=== PATIENT | male | born 1970 | race Caucasian/White ===

== ENCOUNTER 2016-06-26 09:33 | Inpatient (IN) ==
--- NOTE | 2016-06-25 20:25 | Discharge Summary ---
<Jenelle Swain - Last Filed: 06/25/16 20:22> Date of Encounter: 06/27/16 - Discharge Diagnosis (1) Glenohumeral arthritis Status: Acute Qualifiers: Laterality: left Qualified Code(s): M19.012 - Primary osteoarthritis, left shoulder (2) HTN (hypertension) Priority: Secondary Status: Chronic Qualifiers: Hypertension type: essential hypertension Qualified Code(s): I10 - Essential (primary) hypertension (3) Asthma Priority: Secondary Status: Chronic Qualifiers: Asthma severity: unspecified severity Asthma complication type: uncomplicated Qualified Code(s): J45.909 - Unspecified asthma, uncomplicated (4) Obesity Priority: Secondary Status: Chronic Qualifiers: Obesity type: unspecified obesity type Obesity severity: unspecified obesity severity Qualified Code(s): E66.9 - Obesity, unspecified - Discharge Medications Home Medications: OxyCODONE Immed Rel [Roxicodone 5 MG] 5 mg PO Q6HR PRN #40 tablet 06/25/16 [Rx] Albuterol Neb [Proventil Neb] 2.5 mg IH TID PRN 06/26/16 [History] Albuterol Sulfate [Albuterol Inhaler] 2 puff IH Q4HR PRN 06/26/16 [History] Amlodipine [Norvasc] 5 mg PO DAILY 06/26/16 [History] Budesonide/Formoterol 160/4.5 [Symbicort 160/4.5] 2 puff IH BIDR 06/26/16 [ History] CloNIDine HCl 0.1 mg PO HS PRN 06/26/16 [History] ClonazePAM [Klonopin] 0.5 - 1 mg PO HS 06/26/16 [History] Divalproex (24 HR) [Depakote ER (24 HR)] 500 mg PO BID 06/26/16 [History] Ferrous Sulfate [Iron] 325 mg PO DAILY 06/26/16 [History] Fexofenadine HCl [Allergy Relief] 180 mg PO DAILY 06/26/16 [History] Fluticasone Propionate Nasal [Flonase] 1 spr NS DAILY PRN 06/26/16 [History] HYDROcodone/Acet 5/325 mg [[place] 5-325 mg] 1 tab PO Q12H PRN 06/26/16 [History] Lisinopril/Hydrochlorothiazide [Zestoretic 20-25 mg Tablet] 1 - 2 tab PO HS [History] Metoprolol XL (24 HR) Succ [Toprol XL] 25 mg PO HS 06/26/16 [History] Omeprazole [PriLOSEC] 40 mg PO DAILY 06/26/16 [History] Tramadol HCl [Ultram] 100 mg PO QID PRN 06/26/16 [History] Venlafaxine [Effexor] 37.5 mg PO BID 06/26/16 [History] Allergies/Adverse Reactions: Allergies Penicillins [PCN] Allergy (Verified 06/26/16 11:28) Hives Primary care physician: Jeanna De Guzman CNP - Patient Status Disposition: Home, Self-Care Condition: Good - Discharge Instructions Follow Up With: Shabbir Hale MD [Partnered Physician] - 07/25/16 10:35 am Jenelle Swain, EMMANUEL [Physician [employer] Se[employer] Tester] - 07/06/16 10:30 am Jeanna De Guzman CNP [Primary Care Provider] - 08/30/16 9:30 am Additional Instructions: Discharge Instructions: Total Shoulder Please call [facility] ([phone]), your Primary Care Physician, or report to the Emergency Room if you have any of the following symptoms: Nausea, vomiting, fever greater that 101.5, swelling, chest pain, shortness of breath, increased pain/redness/drainage/odor for your incision site, numbness/ tingling, or any other concerning symptoms. ACTIVITY: Always keep your arm in the sling. Do not raise your arm away from your body. Do not use your arm to help with getting in or out of bed. No weight bearing permitted. Only perform those exercises given to you by your therapist. MEDICATIONS: Upon discharge resume your home medications. Take all the medications as prescribed. Take a stool softener if taking narcotic pain medications. Stool softeners are only effective if you drink enough fluids. Drink 6-8 glass of water or fluids a day, unless this is not allowed for another health problem. Despite using stool softeners, if you haven't had a bowel movement in 3 days, please switch to a gentle laxative. Gentle laxatives are sold over the counter. You should have a bowel movement within 24 hours, if not call the office. You will be discharged from the hospital with a prescription for pain medication. You are encouraged to decrease the use of narcotic pain medication as tolerated. Should you require a refill, please call the office. [facility] prescribes narcotic pain medication for only 4-6 weeks after surgery. If you require pain medication beyond this time period, you may be referred to your Primary Care Physician or to the Pain Clinic for further evaluation. Plan ahead for refills on pain medication as many narcotics either need to be picked up at the office or mailed. It is best to call 48-72 hours in advance of needing a prescription refill so you don't run out of medication. To help control the post-operative pain, you may take NSAIDs (Aleve,Advil, Motrin, ibuprofen, naprosyn) or Tylenol as prescribed on the bottle in addition to the pain medication. ANTICOAGULATION (blood thinners): Continue your Aspirin, Lovenox or Coumadin as prescribed to help prevent a blood clot in the leg or in the lungs. As long as your incision remains dry and you tolerate the NSAIDs (Aleve, Advil, Motrin, ibuprofen, naprosyn), it is OK to use the NSAIDS while you are taking your anticoagulation medication. Should your incision start to drain, stop the NSAID and contact our office. Common symptoms of blood clot in the legs include: localized pain, swelling, calf tenderness, redness or discoloration of the skin. Blood clot in the lung symptoms include: shortness of breath, rapid pulse, sweating, and chest pain that worsens with deep breathing, coughing up blood, lightheadedness, and feelings of anxiety. If you experience any of these symptoms notify your physician immediately, go to the emergency room, or if having trouble breathing , call 911. WOUND CARE: Leave the dressing on for 7 days. You may change the dressing if it becomes saturated greater than 50%. You can shower but not a tub bath or submerge your incision in water. Wash your hands with antibacterial soap, rinse and dry prior to any wound care. If you have vicki the visiting nurse or rehab facility can remove the stapes 10-14 days after surgery and place steri -strips across the wound. Leave the steri-strips in place until they fall off on their won. You may let water from the shower run on top of the steri- stirips. If you do not have a visiting nurse or rehab facility, you will need to return to the office at 10-14 days for the vicki to be removed. FOLLOW-UP: Please follow up with your surgeon in the orthopedic clinic, as scheduled - Hospital Course Hospital course: Mr. Ashley is a 46 year old male - Time Spent with Patient Total time spent providing and/or coordinating discharge services: <Shabbir Hale - Last Filed: 06/27/16 06:29> Time of Encounter: 06:28 - Discharge Diagnosis (1) Glenohumeral arthritis Priority: Primary Status: Acute Qualifiers: Laterality: left Qualified Code(s): M19.012 - Primary osteoarthritis, left shoulder (2) Asthma Priority: Secondary Status: Chronic Qualifiers: Asthma severity: unspecified severity Asthma complication type: uncomplicated Qualified Code(s): J45.909 - Unspecified asthma, uncomplicated (3) HTN (hypertension) Priority: Secondary Status: Chronic Qualifiers: Hypertension type: essential hypertension Qualified Code(s): I10 - Essential (primary) hypertension (4) Obesity Priority: Secondary Status: Chronic Qualifiers: Obesity type: unspecified obesity type Obesity severity: unspecified obesity severity Qualified Code(s): E66.9 - Obesity, unspecified Primary care physician: Jeanna De Guzman CNP - Patient Status Overall status at discharge: patient is progressing back to baseline - Hospital Course Hospital course: Mr. Ashley is a 46 year old male The patient had an uneventful postoperative course. They received antibiotics and physical therapy and were discharged in stable condition. There will follow -up in the office in 2 weeks. Discharge June 26 - Time Spent with Patient Total time spent providing and/or coordinating discharge services:
--- NOTE | 2016-06-26 09:44 | History & Physical Report ---
Date of Encounter: 06/26/16 Time of Encounter: 09:44 24 Hour HP Update - Instructions Instructions: If the History and Physical is less than 30 days old and was completed prior to A.M. admission and or procedure and has NOT been updated on calendar day of procedure please complete this update prior to performing procedure. - Update Patient reports changes in Medical Condition: No Changes in assessment/condition: No Changes in Medication: No Preop tests/diagnostics Reviewed: Yes Surgery Remains Indicated: Yes Consent for Planned Operative Procedure(s) Verified: Yes - Pre-Operative Checklist Preoperative Checklist Indicated: No Prophylactic Antibiotic Ordered: Yes Is VTE Prophylaxis Indicated?: Yes
--- NOTE | 2016-06-26 10:01 | Anesthesia Evaluation PreOp ---
Date of Encounter: 06/26/16 Time of Encounter: 09:59 - Past History Planned Operation: left TSA Cardiac History: HTN (BP is elevated this morning. He did not take his Metoprolol and states that this BP is not bad for him.) Pulmonary History: Smoker, Pack/yr (1ppd x 30 years), Asthma [employer] WHE[employer] History: Other (anxiety) Other Medical History: GERD Anesthesia History: No Prior Anesthetic Complications, Past Anesthesia (left shoulder surgery and right hand surgery) Alcohol Use: none, rarely Drug use: none Medications and Allergies Albuterol Sulfate [Albuterol Inhaler] 0 puff IH Q4HR 05/29/15 [History] Ibuprofen [Motrin] 600 mg PO Q6HR PRN #16 tab 08/03/15 [Rx] PredniSONE 60 mg PO ONCE 5 Days 04/16/16 [Rx] OxyCODONE Immed Rel [Roxicodone 5 MG] 5 mg PO Q6HR PRN #40 tablet 06/25/16 [Rx] Allergies Penicillins [PCN] Allergy (Verified 04/16/16 12:31) Hives - Meds/Allergy Pre-op Review Medications Reviewed: Yes Allergies Reviewed: Yes Beta Blockers on Current Med List: Yes If Beta Blockers taken, Date/Time (Last Dose taken): this morning in SDS Anesthesia Results - Labs Laboratory Tests 06/21/16 06/21/16 06/21/16 14:45 14:45 14:45 WBC 5.9 Hgb 17.4 H Hct 50.8 H Plt Count 253 PT 10.3 INR 1.0 APTT 30.2 Sodium 140 Potassium 4.4 BUN 10 Creatinine 0.84 - Imaging EKG: report reviewed Anesthesia Exam Selected Entries 06/26/16 09:52 Temperature 98.6 F Pulse Rate 87 Respiratory Rate 18 Blood Pressure 162/106 O2 Sat by Pulse Oximetry 97 Height: 73.5in Weight: 234lbs NPO (# of Hours): 8 Pain Scale: 3 Pain Scale Used: Numeric (1 - 10) - HEENT Pupil (Motor): EOMI Mallampati: II Teeth: Normal Oral Opening: Greater than 3 - [employer] LOC: Oriented, Confused [employer] Motor: Normal RUE, Normal LUE, Normal RLE, Normal LLE, Normal Face [employer] Sensory: Normal: RUE, LUE, RLE, LLE, Face - Cardiac Rhythm: Regular Murmur: None - Pulmonary Breath Sounds: bilateral Clear Respiratory Effort: Symmetrical (smells of tabacco smoke, had cigarette this morning) Anesthesia Assess/Plan ASA Score: 3 Modified Byers Scale for Level of Consciousness: Cooperative, oriented, and tranquil Anesthetic Plan: General Monitoring Plan: Standard Monitors Recovery Plan: PACU (Discussed GA and nerve block. Questions answered. Agrees to proceed.)
[2016-06-26] MEDS ORDERED: Albuterol 2.5 MG/3 ML NEBULIZER IH ONE (10:02)
[2016-06-26] MEDS ORDERED: Ringers Solution, Lactated 1,000 ML IVC SCH ×2 (10:15→14:12)
[2016-06-26] MEDS ORDERED: *HR* Promethazine 25 MG/ML VIAL IVP PRN (10:18)
[2016-06-26] MEDS ORDERED: *HR* Metoprolol 5 MG/5 ML VIAL IVP PRN (10:20)
[2016-06-26] MEDS ORDERED: Clindamycin 900 MG/50 ML 900 MG/50 ML IV.SOLN IVPB ONE (10:28)
[2016-06-26] MEDS ORDERED: *HR* Midazolam HCl 2 MG/2 ML VIAL ONE (10:29)
[2016-06-26] MEDS ORDERED: Ondansetron 4 MG/2 ML VIAL ONE (10:29)
[2016-06-26] MEDS ORDERED: Lidocaine -MPF 4% 5 ML AMPUL ONE (10:29)
[2016-06-26] MEDS ORDERED: *HR* Succinylcholine 200 MG/10 ML VIAL IVP ONE (10:29)
[2016-06-26] MEDS ORDERED: Lidocaine -MPF 2% 2 ML VIAL ONE (10:29)
[2016-06-26] MEDS ORDERED: Dexamethasone 4 MG/ML VIAL ONE (10:29)
[2016-06-26] MEDS ORDERED: *HR* Propofol 200 MG/20 ML VIAL IVP ONE ×2 (10:29→11:20)
[2016-06-26] MEDS ORDERED: *HR* FentaNYL (PF) 100 MCG/2 ML VIAL ONE ×2 (10:29→11:31)
[2016-06-26] MEDS: Metoprolol XL (24 HR) Succ 25 MG TAB.ER.24H PO ONE ×2 (10:45→10:47)
[2016-06-26] MEDS ORDERED: Tetracaine/PF 20 MG/2 ML AMPUL SPINA ONE (11:00)
[2016-06-26] MEDS ORDERED: *HR* Metoprolol 5 MG/5 ML VIAL IVP ONE (11:27)
--- NOTE | 2016-06-26 11:48 | Anesthesia Procedures ---
Date of Encounter: 06/26/16 Time of Encounter: 11:10 Procedures: Anesthesia - Nerve Block Procedure Date: 06/26/16 Time: 11:10 Allergies/Adv Reactions: PCN ASA FLEXERIL ZANAFLEX ZOCOR LIPITOR NORVASC GABAPENTIN Pre-op Diagnosis: LEFT SHOULDER ARTHRITIS Surgical Procedure: LEFT TOTAL SHOULDER Checklist: Correct Patient Identifier, Correct procedure, History checked Correct side: Left Blood Thinner: No Monitor Applied: EKG, BP, Pulse Oximetry Supplemental Oxygen via Nasal Cannula (L/min): 2 Sedation: Versed (mg): 2 Sedation: Fentanyl (mcg): 100 Indication: Post Op Analgesia Pre-op Neuro Deficits: No Block Type: Supraclavicular (INTERCOSTAL BRACHIAL AND SUPERFICIAL CERRVICAL PLEXUS ) Catheter placed: No Sterile Technique: Yes Ultrasound used: Yes Anatomy identified: Yes Visual spread of Local: Yes Neuro Stimulation: Yes Nerve Stimulator Range: 0.2 - 0.4 mA Blood on Needle Aspiration: No Smooth Injection of Local: Yes Pain with Injection of Local: No Prep: Chlorhexadine Needle: 22 x 50 mm Stimuplex Local: Tetracaine, Other (TETRACAINE 20MG +BUPIVICAINE 0.5%) Volume (cc): 40 Number of Attempts: 1 Complications: None/effective block Vitals: Vital Signs - Last 8 Hours Temp Pulse Resp BP Pulse Ox 06/26/16 11:05 79 169/111 97 06/26/16 10:48 18 162/106 97 06/26/16 09:52 98.6 F 87 18 162/106 97 Intake and Output 06/25/16 06/26/16 06/26/16 23:59 07:59 15:59 Other: Weight 106.141 kg Patient Weight 06/26/16 23:59 Weight 106.141 kg Comments: PER SANTOSH DOWNING REQUEST
[2016-06-26] MEDS ORDERED: Ketorolac 30 MG/ML VIAL ONE (12:09)
--- NOTE | 2016-06-26 12:15 | Orthopedic Operative Note ---
Date of procedure: 06/26/16 Pre-op diagnosis: Left shoulder arthritis Post-op diagnosis: same Procedure: Procedure: Left Total Shoulder Replacement biceps tenodesis Estimated blood loss: 100 cc Hardware:Arthrex glenoid: Large vault lock humeral stem: 10 humeral head 54 Exam Under anesthesia:restricted all planes Procedural Notes: 4:30 changes humeral head and glenoid socket Operative procedure: The patient was brought to the operating room and placed on the operating room table. After general anesthesia was administered the operative shoulder was examined. Findings were noted. The patient was placed in the modified beachchair position. All pressure points were padded appropriately. And the head was stabilized in the neutral position. The operative extremity was prepped and draped in the sterile surgical fashion. The patient received IV antibiotics prior to skin incision. A standard deltopectoral approach was made to the operative shoulder. Incision was made to the skin and subcutaneous tissue,hemo stasis was obtained with Bovie cautery. Using careful blunt dissection the cephalic vein was identified and mobilized medially. The deltopectoral interval was developed and the clavipectoral fascia was incised. The subscap was released off the lesser tuberosity and tagged with #2 FiberWire suture. The humerus was dislocated osteophytes were present were removed and the humeral cut was made along the anatomic neck. Patient noted to have grade 4 arthritic changes humeral head. Anterior and posterior Bankart retractors were placed to expose the glenoid. Patient noted to have grade 4 arthritic changes glenoid socket. The glenoid guide was seated and the centering hole was made. It was reamed with the appropriate reamer. The finishing guide was seated superior and inferior drill holes were placed. Patient punch was seated trial was seated had good fit and fixation. The glenoid component was cemented in place held with digital pressure until cemented hardened. A good fit and fixation. The humerus was redislocated and prepared with the diaphyseal reamers, followed by a broaching process up to the appropriate size in the patient's anatomic version. Trial components were removed and drill holes were placed in the bicipital groove x 2. The apex stem was filled with a #5 FiberWire suture through the holes in the stem the 2 lateral fin holes were passed through the drill holes in the lesser tuberosity and passed through the biceps tendon. The component was impacted in place the neck angle and version were locked in place with the inferior and superior screws the trial 54 head was seated and secured in the appropriate position shoulder had good motion and stability. Trial head was removed real head was seated and secured subscap was repaired to the humerus as well as the humeral stem incorporating the biceps tendon for biceps tenodesis and a subscap repair. The deltopectoral interval was closed with a running #1 PDS suture, subcutaneous tissue was irrigated and closed with 0 PDS suture, the skin was closed with Dermabond. The patient was placed in a sterile dressing, abduction brace and extubated. The patient was then transferred to the recovery room in stable condition. Anesthesia: NIRMALA Surgeon: Shabbir Hale Lead Engineer: Jenelle Swain Condition: stable Disposition: PACU
[2016-06-26] MEDS: *HR* HYDROmorphone (PF) 1 MG/ML SYRINGE IVP PRN ×4 (12:36→13:13)
[2016-06-26 13:05] LABS: Hematocrit 46.2 % (37.5-50.1)
[2016-06-26 13:07] LABS: Hemoglobin 15.5 g/dL (12.9-16.9)
--- NOTE | 2016-06-26 13:33 | Anesthesia Evaluation Post Op ---
Date of Encounter: 06/26/16 Time of Encounter: 13:35 - Vital Signs Vital Signs: Vital Signs/O2 Sat/Glucose, Most Current Temp Pulse Resp BP Pulse Ox 06/26/16 13:19 85 20 133/99 94 L 06/26/16 13:09 88 20 140/100 93 L 06/26/16 12:59 98.1 F 97 20 150/112 93 L 06/26/16 12:49 96 20 143/107 94 L 06/26/16 12:39 104 20 185/138 93 L 06/26/16 12:29 97.6 F 107 20 163/110 94 L 06/26/16 11:05 79 169/111 97 06/26/16 10:48 18 162/106 97 06/26/16 09:52 98.6 F 87 18 162/106 97 - Lungs Lungs: Clear Ascult./Percussion - Airway Airway: Non-obstructed - Cardiovascular Regular Rate - Mental Status Mental Status: Alert & Oriented, Answers Appropriately - Pain Pain Scale: 0 - Nausea Vomiting Nausea Vomiting: Not Present - Hydration Hydration: Ice chips - Discharge PostOp Status: Transfer Patient to floor
[2016-06-26] MEDS ORDERED: *HR* Labetalol 20 MG/4 ML SYRINGE IVP PRN (14:00)
[2016-06-26] MEDS ORDERED: *HR* HYDROmorphone (PF) 1 MG/ML SYRINGE IVP PRN (14:12)
[2016-06-26] MEDS ORDERED: Ondansetron 4 MG/2 ML VIAL IVP PRN (14:12)
[2016-06-26] MEDS ORDERED: Acetaminophen 325 MG TABLET PO PRN (14:12)
[2016-06-26] MEDS ORDERED: Naloxone 0.4 MG/ML INJ IVP PRN (14:12)
[2016-06-26] MEDS ORDERED: MOM Conc 10 ML UD.LIQ PO PRN (14:12)
[2016-06-26] MEDS ORDERED: *HR* OxyCODONE Immed Rel 5 MG TABLET PO PRN ×2 (14:12)
[2016-06-26] MEDS ORDERED: Temazepam 15 MG CAPSULE PO PRN (14:12)
[2016-06-26] MEDS ORDERED: Albuterol Neb 1.25 MG/3 ML VIAL IH ONE (14:12)
[2016-06-26] MEDS ORDERED: Sennosides 8.6 MG TABLET PO PRN (14:12)
[2016-06-26] MEDS ORDERED: *HR* Enoxaparin 30 MG/0.3 ML SYRINGE SQ SCH ×3 (14:16→18:00)
[2016-06-26] MEDS ORDERED: Clindamycin 900 MG/50 ML 900 MG/50 ML IV.SOLN IVPB SCH (16:00)
[2016-06-26 17:32] VITALS: BP 143/93
== END 2016-06-26 18:10 | disposition home or self-care (01) | DRG 322 ==
LOC: SAMDAY 09:33 → 3NENU 14:10
PROVIDERS: ADMIT Orthopaedic Surgery; ATTEND Orthopaedic Surgery